=== PATIENT | male | born 1970 | race Caucasian/White ===

== ENCOUNTER 2018-07-14 23:13 | Emergency (ER) | payer BC ==
[~2018-07-14] VITALS: Ht 188 cm; Wt 90.7 kg
[2018-07-15] MEDS ORDERED: DIPHTH/TETANUS/ACEL. PERTUSSIS 0.5 ML SYR IM ONE
[2018-07-15] MEDS ORDERED: AUGMENTIN 875-1 EACH PO
[2018-07-15] MEDS ORDERED: IBUPROFEN400 MG PO
[2018-07-15 01:04] VITALS: BP 146/73
== END 2018-07-15 00:20 | disposition home or self-care (01) ==
LOC: FSED 23:13
DX: S60.470A Other superficial bite of right index finger, initial encounter (principal); S61.250A Open bite of right index finger without damage to nail, initial encounter
CPT/HCPCS: 99283